=== PATIENT | male | born 1970 | race African-American/Black ===

== ENCOUNTER 2018-08-09 17:06 | Inpatient (IN) | payer OTHER ==
[~2018-08-09 17:06] MED LIST: AMIODARONE 150 MG INJ; ATROPINE 1 MG/10 ML SYRINGE; CA CHLORIDE 10% 10 ML SYRINGE; EPINEPHrine 0.1 MG/ML SYG; NA BICARBONATE 8.4% 50 ML SYG; NORepinephrine 8MG/250 ML BAG
[2018-08-09 17:31] LABS: ADD MAN DIFF? NO
[2018-08-09 17:33] LABS: WHITE BLOOD COUNT 7.5 10^3/ul (4.8-10.8)
[2018-08-09 17:33] LABS: ABNORMAL IP MESSAGE 1; BASOPHILS % 0.3 % (0.0-2.0); EOSINOPHILS % 0.1 % (0.0-7.0); HEMOGLOBIN 12.9 g/dl (14.0-18.0); LYMPHOCYTES # 2.8 10^3/ul (0.8-2.9); LYMPHOCYTES % 37.8 % (15.0-51.0); MEAN CORPUSCULAR HEMOGLOBIN 26.8 pg (29.0-33.0); MEAN CORPUSCULAR HGB CONC 29.3 g/dl (32.0-37.0); MEAN CORPUSCULAR VOLUME 91.3 fl (82.0-101.0); MEAN PLATELET VOLUME 10.2 fl (7.4-10.4); MONOCYTE # 0.3 10^3/ul (0.3-0.9); MONOCYTES % 3.5 % (0.0-11.0); NEUTROPHILS % 53.2 % (39.0-77.0); NUCLEATED RED BLOOD CELLS% 0.3 /100WBC (0.0-0.0); PLATELET COUNT 258 10^3/UL (140-415); POSITIVE DIFF @See below; RED BLOOD COUNT 4.82 10^6/ul (4.70-6.10); RED CELL DISTRIBUTION WIDTH 14.9 % (11.5-14.5)
[2018-08-09 17:48] LABS: INR 1.12; PROTIME 14.6 Sec (11.9-14.9); PT RATIO 1.1
[2018-08-09 17:49] LABS: PARTIAL THROMBOPLASTIN TIME 29.5 Sec (25.0-35.0)
[2018-08-09 17:51] LABS: ALANINE AMINOTRANSFERASE 81 IU/L (13-69); ALBUMIN 3.1 g/dl (3.3-4.9); ALBUMIN/GLOBULIN RATIO 0.93; ALKALINE PHOSPHATASE 98 IU/L (42-121); ANION GAP 23 (8-16); ASPARTATE AMINO TRANSFERASE 143 IU/L (15-46); BILIRUBIN,INDIRECT 0.1 mg/dl (0-1.1); BILIRUBIN,TOTAL 0.1 mg/dl (0.2-1.3); BLOOD UREA NITROGEN 18 mg/dl (7-20); CALCIUM 8.6 mg/dl (8.4-10.2); CARBON DIOXIDE 16 mmol/L (21-31); CHLORIDE 105 mmol/L (97-110); CREATININE 2.86 mg/dl (0.61-1.24); GLUCOSE 343 mg/dl (70-220); POTASSIUM 3.4 mmol/L (3.5-5.1); SODIUM 141 mmol/L (135-144); TOTAL PROTEIN 6.4 g/dl (6.1-8.1)
[2018-08-09 18:02] LABS: TROPONIN-I < 0.012 ng/ml (0.000-0.120)
[2018-08-09] MEDS ORDERED: LIDOCAINE 1% (MDV) 20 ML INJ (18:08)
[2018-08-09] MEDS ORDERED: IODIXANOL LOCM 100 ML BTL ×3 (18:08→18:42)
[2018-08-09] MEDS ORDERED: CANGRELOR TETRASODIUM/ NS 250 50 MG (18:09)
[2018-08-09 18:15] LABS: MAGNESIUM 2.2 mg/dl (1.7-2.5)
[2018-08-09 18:15] LABS: PHOSPHORUS 9.7 mg/dl (2.5-4.9)
[2018-08-09 18:15] LABS: LACTIC ACID 12.1 mmol/L (0.5-2.0)
[2018-08-09] MEDS ORDERED: MIDAZOLAM 1 MG/ML 2 ML INJ (18:20)
[2018-08-09] MEDS ORDERED: BIVALIRUDIN 250MG /NS 50 ML 50 ML IVPB (18:20)
[2018-08-09] MEDS ORDERED: FUROSEMIDE 40 MG INJ (18:48)
[2018-08-09 19:09] LABS: HEMOGLOBIN A1C 8.6 % (0-5.9)
[2018-08-09] MEDS ORDERED: LIDOCAINE 1%/EPI 30 ML INJ (19:29)
[2018-08-09] MEDS ORDERED: GLUCOSE GEL 15 GRAM TUBE PO ×2 (19:30)
[2018-08-09] MEDS: PROPOFOL 100 ML IV ×2 (19:30→23:17)
[2018-08-09] MEDS ORDERED: GLUCOSE GEL 15 GRAM TUBE BUCCAL (19:30)
[2018-08-09] MEDS ORDERED: GLUCAGON 1 MG INJ IM (19:30)
[2018-08-09] MEDS ORDERED: DEXTROSE 50% 50 ML SYRINGE IV ×2 (19:30)
[2018-08-09 20:44] LABS: AADO2 Arterial 598.5 mmHg (7.0-24.0); Arterial Base Excess -17.3 mmol/L (-3.0-3); Arterial Blood Gas Oxygen Sat 88.3 mmHG (95.0-98.0); Arterial COHb 0.3 % (0.0-3.0); Arterial Fraction of Oxyhgb 87.8 % (93.0-99.0); Arterial HCO3 11.9 mmol/L (22.0-26.0); Arterial MetHb 0.3 % (0.0-1.5); Arterial Total Hemglobin 14.7 g/dl (12.0-18.0); Arterial pCO2 40.1 mmhg (35-45); MODE VENT - AC; Site A-Line
[2018-08-09 20:46] LABS: AADO2 Arterial 587.2 mmHg (7.0-24.0); Allen Test ACCEPTAB; Arterial Base Excess -19.2 mmol/L (-3.0-3); Arterial Blood Gas Oxygen Sat 91.8 mmHG (95.0-98.0); Arterial COHb 0.1 % (0.0-3.0); Arterial Fraction of Oxyhgb 91.4 % (93.0-99.0); Arterial HCO3 10.6 mmol/L (22.0-26.0); Arterial MetHb 0.3 % (0.0-1.5); Arterial Total Hemglobin 15.1 g/dl (12.0-18.0); Arterial pCO2 39.1 mmhg (35-45); MODE VENT - AC; Site Left Radial
[2018-08-09] MEDS: NORepinephrine 8MG/250 ML (PMX 250 ML IV ×2 (20:50→21:30)
[2018-08-09] MEDS: AMIODARONE DRIP 1 MG/MIN X 6 HRS, THEN 0.5 MG/MIN X 18 HRS THEN DC IV (20:51)
[2018-08-09] MEDS ORDERED: Insulin NOVOLOG SS MILD Algorithm (NPO/TPN/ENTERAL FEEDS) SC (21:00)
[2018-08-09] MEDS ORDERED: INSULIN ASPART [NOVOLOG] 3 ML PEN SC (21:00)
[2018-08-09] MEDS: AMIODARONE 900MG/D5W DRIP 500 ML IV (21:00)
[2018-08-09] MEDS: SOD CHLORIDE 0.9% IV (21:20)
[2018-08-09] MEDS: FUROSEMIDE IV (21:20)
[2018-08-09] MEDS: [UNRECOGNIZED DRUG - OTHER] IVPB ×2 (21:37→23:14)
[2018-08-09] MEDS: SODIUM CHLORIDE IVPB ×2 (21:37→23:14)
[2018-08-09] MEDS: VECURONIUM 100 MG in DEXTROSE 5% 100 ML IV (21:41)
[2018-08-09] MEDS ORDERED: NA BICARBONATE 8.4% 50 ML SYG (21:46)
[2018-08-09] MEDS ORDERED: PROPOFOL 100 ML (21:58)
[2018-08-09] MEDS: NA BICARBONATE 8.4% 50 ML SYG IV (22:01)
[2018-08-09] MEDS: BUMETANIDE 1 MG INJ IV (22:01)
[2018-08-09] MEDS: SODIUM CHLORIDE 0.9% 1L BAG IV* (22:04)
[2018-08-09] MEDS: TICAGRELOR 90 MG TABLET PO (22:14)
[2018-08-09] MEDS: SODIUM CHLORIDE 0.9% 500 ML BAG IV* (23:15)
[2018-08-09] MEDS: SOD CHLORIDE 0.45% 1,000 ML IV (23:16)
[2018-08-09 23:28] LABS: AMYLASE 337 U/L (11-123)
[2018-08-09 23:28] LABS: LIPASE 129 U/L (23-300)
[2018-08-09 23:34] LABS: ADD UMIC YES; UR ASCORBIC ACID NEGATIVE (NEGATIVE); UR BACTERIA FEW /HPF (NONE SEEN); UR BILIRUBIN (Dip) NEGATIVE (NEGATIVE); UR BLOOD (Dip) 3+ mg/dL (NEGATIVE); UR CLARITY SLIGHTLY CLOUDY (CLEAR); UR COLOR YELLOW (YELLOW); UR GLUCOSE (Dip) 3+ mg/dL (NEGATIVE); UR KETONES (Dip) NEGATIVE (NEGATIVE); UR LEUKOCYTE ESTERASE (Dip) NEGATIVE Leu/ul (NEGATIVE); UR MUCUS FEW /HPF (NONE SEEN); UR NITRITE (Dip) NEGATIVE (NEGATIVE); UR RBC 40 /HPF (0-5); UR SPECIFIC GRAVITY (Dip) 1.017 (1.003-1.030); UR SQUAMOUS EPITHELIAL CELL FEW /HPF (FEW); UR TOTAL PROTEIN (Dip) 2+ mg/dl (NEGATIVE); UR UROBILINOGEN (Dip) NEGATIVE (NEGATIVE); UR WBC 5 /HPF (0-5)
[2018-08-09 23:43] LABS: LACTIC ACID 10.1 mmol/L (0.5-2.0)
[2018-08-09 23:56] LABS: CK INDEX 0.3; CREATINE KINASE 67790 IU/L (23-200)
[2018-08-10] MEDS: AMIODARONE DRIP 1 MG/MIN X 6 HRS, THEN 0.5 MG/MIN X 18 HRS THEN DC IV
[2018-08-10] MEDS: PROPOFOL 100 ML IV ×5 (01:04→21:31)
[2018-08-10 01:05] LABS: ADD MAN DIFF? NO
[2018-08-10 01:07] LABS: ABNORMAL IP MESSAGE 1; BASOPHILS % 0.2 % (0.0-2.0); HEMATOCRIT 47.4 % (42.0-52.0); HEMOGLOBIN 14.6 g/dl (14.0-18.0); LYMPHOCYTES # 1.3 10^3/ul (0.8-2.9); LYMPHOCYTES % 5.7 % (15.0-51.0); MEAN CORPUSCULAR HEMOGLOBIN 26.8 pg (29.0-33.0); MEAN CORPUSCULAR HGB CONC 30.8 g/dl (32.0-37.0); MEAN CORPUSCULAR VOLUME 87.1 fl (82.0-101.0); MEAN PLATELET VOLUME 9.8 fl (7.4-10.4); MONOCYTE # 1.7 10^3/ul (0.3-0.9); MONOCYTES % 7.7 % (0.0-11.0); NEUTROPHIL # 18.8 10^3/ul (1.6-7.5); PLATELET COUNT 369 10^3/UL (140-415); POSITIVE DIFF @See below; RED BLOOD COUNT 5.44 10^6/ul (4.70-6.10)
[2018-08-10 01:07] LABS: WHITE BLOOD COUNT 22.1 10^3/ul (4.8-10.8)
[2018-08-10 01:12] LABS: ALANINE AMINOTRANSFERASE 311 IU/L (13-69); ALBUMIN 3.2 g/dl (3.3-4.9); ALBUMIN/GLOBULIN RATIO 0.96; ALKALINE PHOSPHATASE 120 IU/L (42-121); ANION GAP 27 (8-16); ASPARTATE AMINO TRANSFERASE 739 IU/L (15-46); BILIRUBIN,INDIRECT 0.2 mg/dl (0-1.1); BILIRUBIN,TOTAL 0.2 mg/dl (0.2-1.3); BLOOD UREA NITROGEN 24 mg/dl (7-20); CALCIUM 7.3 mg/dl (8.4-10.2); CARBON DIOXIDE 13 mmol/L (21-31); CHLORIDE 103 mmol/L (97-110); MAGNESIUM 1.9 mg/dl (1.7-2.5); PHOSPHORUS 11.6 mg/dl (2.5-4.9); SODIUM 136 mmol/L (135-144); TOTAL PROTEIN 6.5 g/dl (6.1-8.1)
[2018-08-10 01:24] LABS: INR 1.11; PROTIME 14.5 Sec (11.9-14.9); PT RATIO 1.1
[2018-08-10 01:25] LABS: PARTIAL THROMBOPLASTIN TIME 32.3 Sec (25.0-35.0)
[2018-08-10 01:33] LABS: GLUCOSE 427 mg/dl (70-220); POTASSIUM 7.4 mmol/L (3.5-5.1)
[2018-08-10 01:34] LABS: AADO2 Arterial 637.2 mmHg (7.0-24.0); Arterial Blood Gas Oxygen Sat 89.7 mmHG (95.0-98.0); Arterial COHb 0.3 % (0.0-3.0); Arterial Fraction of Oxyhgb 89.3 % (93.0-99.0); Arterial MetHb 0.2 % (0.0-1.5); Arterial Total Hemglobin 16.4 g/dl (12.0-18.0); MODE VENT - AC; Site A-Line
[2018-08-10 01:37] LABS: CREATININE 2.82 mg/dl (0.61-1.24)
[2018-08-10] MEDS: CEFEPIME 2GM/50 ML (PMX) 50 ML IVPB (01:46)
[2018-08-10] MEDS: FENTAnyl (DRIP) 1000 mcg/100mL 100 ML IV (01:51)
[2018-08-10] MEDS: MIDAZOLAM (DRIP) 50 mg/50 mL 50 ML IV (01:51)
[2018-08-10] MEDS ORDERED: ACCU-CHEK XX (02:00)
[2018-08-10] MEDS ORDERED: DEXTROSE 50% 50 ML SYRINGE IV ×2 (02:00)
[2018-08-10] MEDS: ACCU-CHEK XX ×22 (02:44→22:59)
[2018-08-10] MEDS: VANCOMYCIN 1 GM (PMX) 250 ML IVPB (02:44)
[2018-08-10] MEDS: INSULIN HUMAN REGULAR 100 UNIT in SOD CHLORIDE 0.9% 99 ML IV ×3 (02:47→12:29)
[2018-08-10 03:37] LABS: ALANINE AMINOTRANSFERASE 488 IU/L (13-69); ALBUMIN 3.4 g/dl (3.3-4.9); ALBUMIN/GLOBULIN RATIO 1.06; ALKALINE PHOSPHATASE 124 IU/L (42-121); ANION GAP 23 (8-16); BILIRUBIN,INDIRECT 0.1 mg/dl (0-1.1); BILIRUBIN,TOTAL 0.1 mg/dl (0.2-1.3); BLOOD UREA NITROGEN 28 mg/dl (7-20); CALCIUM 6.9 mg/dl (8.4-10.2); CARBON DIOXIDE 16 mmol/L (21-31); CHLORIDE 105 mmol/L (97-110); SODIUM 137 mmol/L (135-144); TOTAL PROTEIN 6.6 g/dl (6.1-8.1)
[2018-08-10 04:00] LABS: ASPARTATE AMINO TRANSFERASE 1406 IU/L (15-46); CREATININE 2.74 mg/dl (0.61-1.24)
[2018-08-10 04:01] LABS: AADO2 Arterial 613.7 mmHg (7.0-24.0); Arterial Base Excess -10.9 mmol/L (-3.0-3); Arterial COHb 0.1 % (0.0-3.0); Arterial Fraction of Oxyhgb 95.6 % (93.0-99.0); Arterial HCO3 15.7 mmol/L (22.0-26.0); Arterial MetHb 0.3 % (0.0-1.5); Arterial Total Hemglobin 16.1 g/dl (12.0-18.0); Arterial pCO2 31.9 mmhg (35-45); MODE VENT - AC; Site A-Line
[2018-08-10 04:02] LABS: POTASSIUM 7.2 mmol/L (3.5-5.1)
[2018-08-10 04:03] LABS: GLUCOSE 492 mg/dl (70-220)
[2018-08-10] MEDS: NORepinephrine 8MG/250 ML (PMX 250 ML IV ×2 (05:15→12:30)
[2018-08-10] MEDS: CEFEPIME 1GM/50 ML (PMX) 50 ML IVPB ×2 (05:29→17:20)
[2018-08-10] MEDS: CALCIUM GLUCONATE 10% 2 GM in DEXTROSE 5% 100 ML IVPB ×2 (05:35→08:53)
[2018-08-10] MEDS: VECURONIUM 100 MG in DEXTROSE 5% 100 ML IV (06:12)
[2018-08-10 06:53] LABS: ADD MAN DIFF? NO
[2018-08-10 06:57] LABS: BASOPHILS % 0.2 % (0.0-2.0); HEMATOCRIT 45.2 % (42.0-52.0); HEMOGLOBIN 14.4 g/dl (14.0-18.0); LYMPHOCYTES # 1.2 10^3/ul (0.8-2.9); LYMPHOCYTES % 6.1 % (15.0-51.0); MEAN CORPUSCULAR HEMOGLOBIN 26.7 pg (29.0-33.0); MEAN CORPUSCULAR HGB CONC 31.9 g/dl (32.0-37.0); MEAN CORPUSCULAR VOLUME 83.9 fl (82.0-101.0); MEAN PLATELET VOLUME 9.8 fl (7.4-10.4); MONOCYTE # 1.1 10^3/ul (0.3-0.9); MONOCYTES % 5.8 % (0.0-11.0); NEUTROPHILS % 86.8 % (39.0-77.0); PLATELET COUNT 328 10^3/UL (140-415); RED BLOOD COUNT 5.39 10^6/ul (4.70-6.10)
[2018-08-10 06:57] LABS: WHITE BLOOD COUNT 19.6 10^3/ul (4.8-10.8)
[2018-08-10 07:25] LABS: INR 1.06; PROTIME 13.9 Sec (11.9-14.9); PT RATIO 1.1
[2018-08-10 07:26] LABS: PARTIAL THROMBOPLASTIN TIME 30.7 Sec (25.0-35.0)
[2018-08-10 07:42] LABS: ALANINE AMINOTRANSFERASE 565 IU/L (13-69); ALBUMIN/GLOBULIN RATIO 0.88; ALKALINE PHOSPHATASE 121 IU/L (42-121); ANION GAP 23 (8-16); BILIRUBIN,INDIRECT 0.2 mg/dl (0-1.1); BILIRUBIN,TOTAL 0.2 mg/dl (0.2-1.3); BLOOD UREA NITROGEN 30 mg/dl (7-20); CALCIUM 7.6 mg/dl (8.4-10.2); CARBON DIOXIDE 17 mmol/L (21-31); CHLORIDE 104 mmol/L (97-110); MAGNESIUM 2.1 mg/dl (1.7-2.5); SODIUM 138 mmol/L (135-144); TOTAL PROTEIN 6.4 g/dl (6.1-8.1)
[2018-08-10 07:45] LABS: CHOLESTEROL 208 mg/dl (100-200)
[2018-08-10 07:45] LABS: CHOL/HDL RATIO 6.9 RATIO; HDL CHOLESTEROL 30 mg/dl (28-71); LDL CHOLESTEROL,CALCULATED 115 mg/dl; TRIGLYCERIDES 314 mg/dl (0-149)
[2018-08-10 07:54] LABS: CREATININE 2.88 mg/dl (0.61-1.24)
[2018-08-10 07:56] LABS: POTASSIUM 5.6 mmol/L (3.5-5.1)
[2018-08-10 07:57] LABS: GLUCOSE 428 mg/dl (70-220)
[2018-08-10] MEDS: NA BICARBONATE 8.4% 50 ML SYG IV (08:10)
[2018-08-10 09:00] LABS: ASPARTATE AMINO TRANSFERASE 1618 IU/L (15-46)
[2018-08-10] MEDS: SOD CHLORIDE 0.45% 1,000 ML IV ×2 (09:18→21:31)
[2018-08-10 10:24] LABS: AADO2 Arterial 561.1 mmHg (7.0-24.0); Arterial Base Excess -7.3 mmol/L (-3.0-3); Arterial Blood Gas Oxygen Sat 98.5 mmHG (95.0-98.0); Arterial COHb 0.3 % (0.0-3.0); Arterial Fraction of Oxyhgb 97.9 % (93.0-99.0); Arterial HCO3 18.4 mmol/L (22.0-26.0); Arterial MetHb 0.3 % (0.0-1.5); Arterial Total Hemglobin 15.9 g/dl (12.0-18.0); Arterial pCO2 32.8 mmhg (35-45); MODE VENT - AC; Site A-Line; Temperature 33.5 C
[2018-08-10 10:42] LABS: CREATINE KINASE 108910 IU/L (23-200)
[2018-08-10] MEDS: BUMETANIDE 12 MG in DEXTROSE 5% 72 ML IV (10:43)
[2018-08-10 12:35] LABS: ADD MAN DIFF? NO
[2018-08-10 12:37] LABS: BASOPHILS % 0.1 % (0.0-2.0); HEMATOCRIT 48.8 % (42.0-52.0); HEMOGLOBIN 15.2 g/dl (14.0-18.0); LYMPHOCYTES # 0.8 10^3/ul (0.8-2.9); LYMPHOCYTES % 5.5 % (15.0-51.0); MEAN CORPUSCULAR HEMOGLOBIN 26.4 pg (29.0-33.0); MEAN CORPUSCULAR HGB CONC 31.1 g/dl (32.0-37.0); MEAN CORPUSCULAR VOLUME 84.7 fl (82.0-101.0); MEAN PLATELET VOLUME 9.4 fl (7.4-10.4); MONOCYTE # 0.9 10^3/ul (0.3-0.9); MONOCYTES % 6.9 % (0.0-11.0); NEUTROPHIL # 11.9 10^3/ul (1.6-7.5); NEUTROPHILS % 86.8 % (39.0-77.0); PLATELET COUNT 240 10^3/UL (140-415); RED BLOOD COUNT 5.76 10^6/ul (4.70-6.10); RED CELL DISTRIBUTION WIDTH 15.1 % (11.5-14.5)
[2018-08-10 12:37] LABS: WHITE BLOOD COUNT 13.7 10^3/ul (4.8-10.8)
[2018-08-10 12:57] LABS: INR 0.99; PROTIME 13.2 Sec (11.9-14.9)
[2018-08-10 12:58] LABS: PARTIAL THROMBOPLASTIN TIME 25.2 Sec (25.0-35.0)
[2018-08-10 13:05] LABS: ALANINE AMINOTRANSFERASE 712 IU/L (13-69); ALBUMIN 3.3 g/dl (3.3-4.9); ALBUMIN/GLOBULIN RATIO 0.94; ALKALINE PHOSPHATASE 129 IU/L (42-121); ANION GAP 19 (8-16); BILIRUBIN,INDIRECT 0.1 mg/dl (0-1.1); BILIRUBIN,TOTAL 0.1 mg/dl (0.2-1.3); BLOOD UREA NITROGEN 33 mg/dl (7-20); CALCIUM 8.2 mg/dl (8.4-10.2); CARBON DIOXIDE 22 mmol/L (21-31); CHLORIDE 103 mmol/L (97-110); GLUCOSE 251 mg/dl (70-220); MAGNESIUM 2.3 mg/dl (1.7-2.5); PHOSPHORUS 6.2 mg/dl (2.5-4.9); SODIUM 140 mmol/L (135-144); TOTAL PROTEIN 6.8 g/dl (6.1-8.1)
[2018-08-10 13:15] LABS: CREATININE 3.19 mg/dl (0.61-1.24)
[2018-08-10] MEDS: ASPIRIN 81 MG TAB NGT (13:26)
[2018-08-10] MEDS: TICAGRELOR 90 MG TABLET NGT ×2 (13:28→21:05)
[2018-08-10 14:00] LABS: AADO2 Arterial 396.9 mmHg (7.0-24.0); Arterial Base Excess -7.4 mmol/L (-3.0-3); Arterial Blood Gas Oxygen Sat 97.2 mmHG (95.0-98.0); Arterial COHb 0.3 % (0.0-3.0); Arterial Fraction of Oxyhgb 96.8 % (93.0-99.0); Arterial HCO3 17.1 mmol/L (22.0-26.0); Arterial MetHb 0.1 % (0.0-1.5); Arterial Total Hemglobin 15.5 g/dl (12.0-18.0); Arterial pCO2 26.7 mmhg (35-45); MODE VENT - AC; Site A-Line; Temperature 32.7 C
[2018-08-10 16:38] LABS: HEMOGLOBIN A1C 8.4 % (0-5.9)
[2018-08-10 17:17] LABS: CREATININE,URINE RANDOM 18.45 mg/dl (20-370); PROTEIN/CREAT RATIO 3.25 RATIO
[2018-08-10 17:49] LABS: SODIUM,URINE RANDOM 83 mmol/L (30-90)
[2018-08-10 18:09] LABS: AADO2 Arterial 336.3 mmHg (7.0-24.0); ADD MAN DIFF? NO; Allen Test ACCEPTAB; Arterial Base Excess -5.3 mmol/L (-3.0-3); Arterial Blood Gas Oxygen Sat 95.1 mmHG (95.0-98.0); Arterial COHb 0.1 % (0.0-3.0); Arterial Fraction of Oxyhgb 94.8 % (93.0-99.0); Arterial HCO3 19.6 mmol/L (22.0-26.0); Arterial MetHb 0.2 % (0.0-1.5); Arterial Total Hemglobin 16.8 g/dl (12.0-18.0); Arterial pCO2 31.2 mmhg (35-45); MODE VENT - AC; Site Left Radial; Temperature 33.1 C
[2018-08-10 18:11] LABS: WHITE BLOOD COUNT 14.1 10^3/ul (4.8-10.8)
[2018-08-10 18:11] LABS: BASOPHILS % 0.1 % (0.0-2.0); HEMATOCRIT 49.6 % (42.0-52.0); HEMOGLOBIN 15.6 g/dl (14.0-18.0); LYMPHOCYTES # 0.7 10^3/ul (0.8-2.9); MEAN CORPUSCULAR HEMOGLOBIN 26.5 pg (29.0-33.0); MEAN CORPUSCULAR HGB CONC 31.5 g/dl (32.0-37.0); MEAN CORPUSCULAR VOLUME 84.2 fl (82.0-101.0); MEAN PLATELET VOLUME 9.3 fl (7.4-10.4); MONOCYTE # 1.3 10^3/ul (0.3-0.9); MONOCYTES % 9.3 % (0.0-11.0); PLATELET COUNT 265 10^3/UL (140-415); RED BLOOD COUNT 5.89 10^6/ul (4.70-6.10); RED CELL DISTRIBUTION WIDTH 14.6 % (11.5-14.5)
[2018-08-10 18:30] LABS: INR 0.98; PROTIME 13.1 Sec (11.9-14.9)
[2018-08-10 18:31] LABS: PARTIAL THROMBOPLASTIN TIME 27.1 Sec (25.0-35.0)
[2018-08-10 18:34] LABS: ALANINE AMINOTRANSFERASE 784 IU/L (13-69); ALBUMIN 3.3 g/dl (3.3-4.9); ALBUMIN/GLOBULIN RATIO 0.86; ALKALINE PHOSPHATASE 129 IU/L (42-121); ANION GAP 20 (8-16); BILIRUBIN,INDIRECT 0.1 mg/dl (0-1.1); BILIRUBIN,TOTAL 0.1 mg/dl (0.2-1.3); BLOOD UREA NITROGEN 36 mg/dl (7-20); CALCIUM 7.9 mg/dl (8.4-10.2); CARBON DIOXIDE 22 mmol/L (21-31); CHLORIDE 104 mmol/L (97-110); CREATININE 3.68 mg/dl (0.61-1.24); GLUCOSE 145 mg/dl (70-220); MAGNESIUM 2.2 mg/dl (1.7-2.5); PHOSPHORUS 7.2 mg/dl (2.5-4.9); POTASSIUM 3.8 mmol/L (3.5-5.1); SODIUM 142 mmol/L (135-144); TOTAL PROTEIN 7.1 g/dl (6.1-8.1)
[2018-08-10 18:59] LABS: ASPARTATE AMINO TRANSFERASE 2137 IU/L (15-46)
[2018-08-10] MEDS ORDERED: ATORVASTATIN 40 MG TAB NGT (21:00)
[2018-08-10] MEDS: ATORVASTATIN 80 MG TAB NGT (21:04)
[2018-08-10 22:06] LABS: AADO2 Arterial 311.8 mmHg (7.0-24.0); Allen Test ACCEPTAB; Arterial Base Excess -3.9 mmol/L (-3.0-3); Arterial Blood Gas Oxygen Sat 97.9 mmHG (95.0-98.0); Arterial COHb 0.1 % (0.0-3.0); Arterial Fraction of Oxyhgb 97.5 % (93.0-99.0); Arterial HCO3 20.4 mmol/L (22.0-26.0); Arterial MetHb 0.3 % (0.0-1.5); Arterial Total Hemglobin 17.2 g/dl (12.0-18.0); Arterial pCO2 29.7 mmhg (35-45); MODE VENT - AC; Site Left Radial; Temperature 33.1 C
[2018-08-11 00:50] LABS: ADD MAN DIFF? NO
[2018-08-11 00:53] LABS: WHITE BLOOD COUNT 14.4 10^3/ul (4.8-10.8)
[2018-08-11 00:53] LABS: BASOPHILS % 0.1 % (0.0-2.0); HEMATOCRIT 48.8 % (42.0-52.0); HEMOGLOBIN 15.6 g/dl (14.0-18.0); LYMPHOCYTES # 0.7 10^3/ul (0.8-2.9); MEAN CORPUSCULAR HEMOGLOBIN 26.7 pg (29.0-33.0); MEAN CORPUSCULAR VOLUME 83.6 fl (82.0-101.0); MEAN PLATELET VOLUME 9.6 fl (7.4-10.4); MONOCYTE # 1.2 10^3/ul (0.3-0.9); MONOCYTES % 8.6 % (0.0-11.0); NEUTROPHIL # 12.3 10^3/ul (1.6-7.5); NEUTROPHILS % 85.7 % (39.0-77.0); PLATELET COUNT 263 10^3/UL (140-415); RED BLOOD COUNT 5.84 10^6/ul (4.70-6.10); RED CELL DISTRIBUTION WIDTH 14.7 % (11.5-14.5)
[2018-08-11] MEDS: SOD CHLORIDE 0.9% 1,000 ML IV (00:56)
[2018-08-11] MEDS: ACCU-CHEK XX ×24 (01:00→23:00)
[2018-08-11 01:12] LABS: INR 1.09; PROTIME 14.2 Sec (11.9-14.9); PT RATIO 1.1
[2018-08-11 01:13] LABS: PARTIAL THROMBOPLASTIN TIME 28.1 Sec (25.0-35.0)
[2018-08-11] MEDS: INSULIN HUMAN REGULAR 100 UNIT in SOD CHLORIDE 0.9% 99 ML IV ×3 (01:13→23:11)
[2018-08-11 01:15] LABS: ALANINE AMINOTRANSFERASE 834 IU/L (13-69); ALBUMIN 3.2 g/dl (3.3-4.9); ALBUMIN/GLOBULIN RATIO 0.86; ALKALINE PHOSPHATASE 124 IU/L (42-121); ANION GAP 19 (8-16); BILIRUBIN,INDIRECT 0.2 mg/dl (0-1.1); BILIRUBIN,TOTAL 0.2 mg/dl (0.2-1.3); BLOOD UREA NITROGEN 41 mg/dl (7-20); CALCIUM 7.8 mg/dl (8.4-10.2); CARBON DIOXIDE 23 mmol/L (21-31); CHLORIDE 101 mmol/L (97-110); GLUCOSE 145 mg/dl (70-220); MAGNESIUM 2.2 mg/dl (1.7-2.5); PHOSPHORUS 8.5 mg/dl (2.5-4.9); POTASSIUM 4.1 mmol/L (3.5-5.1); SODIUM 139 mmol/L (135-144); TOTAL PROTEIN 6.9 g/dl (6.1-8.1)
[2018-08-11 01:34] LABS: ASPARTATE AMINO TRANSFERASE 2182 IU/L (15-46)
[2018-08-11 03:59] LABS: AADO2 Arterial 309.5 mmHg (7.0-24.0); Allen Test ACCEPTAB; Arterial Base Excess -3.5 mmol/L (-3.0-3); Arterial Blood Gas Oxygen Sat 98.4 mmHG (95.0-98.0); Arterial COHb 0.2 % (0.0-3.0); Arterial HCO3 18.2 mmol/L (22.0-26.0); Arterial MetHb 0.2 % (0.0-1.5); Arterial Total Hemglobin 16.6 g/dl (12.0-18.0); Arterial pCO2 21.8 mmhg (35-45); MODE VENT - AC; Site Left Radial; Temperature 33.2 C
[2018-08-11] MEDS: CEFEPIME 1GM/50 ML (PMX) 50 ML IVPB ×2 (04:48→17:30)
[2018-08-11 05:41] LABS: ADD MAN DIFF? NO
[2018-08-11 05:43] LABS: WHITE BLOOD COUNT 14.8 10^3/ul (4.8-10.8)
[2018-08-11 05:43] LABS: BASOPHILS % 0.1 % (0.0-2.0); HEMATOCRIT 47.2 % (42.0-52.0); HEMOGLOBIN 15.2 g/dl (14.0-18.0); LYMPHOCYTES # 0.7 10^3/ul (0.8-2.9); LYMPHOCYTES % 4.6 % (15.0-51.0); MEAN CORPUSCULAR HEMOGLOBIN 26.8 pg (29.0-33.0); MEAN CORPUSCULAR HGB CONC 32.2 g/dl (32.0-37.0); MEAN CORPUSCULAR VOLUME 83.1 fl (82.0-101.0); MEAN PLATELET VOLUME 9.4 fl (7.4-10.4); MONOCYTE # 1.1 10^3/ul (0.3-0.9); MONOCYTES % 7.1 % (0.0-11.0); NEUTROPHILS % 87.6 % (39.0-77.0); PLATELET COUNT 268 10^3/UL (140-415); RED BLOOD COUNT 5.68 10^6/ul (4.70-6.10); RED CELL DISTRIBUTION WIDTH 14.8 % (11.5-14.5)
[2018-08-11 06:02] LABS: INR 1.09; PARTIAL THROMBOPLASTIN TIME 27.7 Sec (25.0-35.0); PROTIME 14.2 Sec (11.9-14.9); PT RATIO 1.1
[2018-08-11] MEDS: PROPOFOL 100 ML IV (06:20)
[2018-08-11 06:44] LABS: ALANINE AMINOTRANSFERASE 848 IU/L (13-69); ALBUMIN 2.7 g/dl (3.3-4.9); ALBUMIN/GLOBULIN RATIO 0.84; ALKALINE PHOSPHATASE 113 IU/L (42-121); ANION GAP 20 (8-16); BILIRUBIN,INDIRECT 0.2 mg/dl (0-1.1); BILIRUBIN,TOTAL 0.2 mg/dl (0.2-1.3); BLOOD UREA NITROGEN 42 mg/dl (7-20); CALCIUM 7.1 mg/dl (8.4-10.2); CARBON DIOXIDE 20 mmol/L (21-31); CHLORIDE 103 mmol/L (97-110); GLUCOSE 155 mg/dl (70-220); MAGNESIUM 1.9 mg/dl (1.7-2.5); PHOSPHORUS 8.2 mg/dl (2.5-4.9); POTASSIUM 4.4 mmol/L (3.5-5.1); SODIUM 139 mmol/L (135-144); TOTAL PROTEIN 5.9 g/dl (6.1-8.1)
[2018-08-11] MEDS: ASPIRIN 81 MG TAB NGT (08:53)
[2018-08-11] MEDS: TICAGRELOR 90 MG TABLET NGT ×2 (08:54→21:05)
[2018-08-11] MEDS ORDERED: FUROSEMIDE 40 MG INJ (12:03)
[2018-08-11 12:32] LABS: ADD MAN DIFF? NO
[2018-08-11 12:34] LABS: BASOPHILS % 0.2 % (0.0-2.0); HEMATOCRIT 46.4 % (42.0-52.0); HEMOGLOBIN 14.9 g/dl (14.0-18.0); LYMPHOCYTES # 0.7 10^3/ul (0.8-2.9); LYMPHOCYTES % 3.8 % (15.0-51.0); MEAN CORPUSCULAR HEMOGLOBIN 26.9 pg (29.0-33.0); MEAN CORPUSCULAR HGB CONC 32.1 g/dl (32.0-37.0); MEAN CORPUSCULAR VOLUME 83.8 fl (82.0-101.0); MEAN PLATELET VOLUME 9.8 fl (7.4-10.4); MONOCYTE # 1.3 10^3/ul (0.3-0.9); MONOCYTES % 7.4 % (0.0-11.0); NEUTROPHIL # 15.7 10^3/ul (1.6-7.5); NEUTROPHILS % 87.7 % (39.0-77.0); NUCLEATED RED BLOOD CELLS% 0.1 /100WBC (0.0-0.0); PLATELET COUNT 298 10^3/UL (140-415); RED BLOOD COUNT 5.54 10^6/ul (4.70-6.10); RED CELL DISTRIBUTION WIDTH 15.1 % (11.5-14.5)
[2018-08-11 12:34] LABS: WHITE BLOOD COUNT 17.9 10^3/ul (4.8-10.8)
[2018-08-11 12:56] LABS: INR 1.13; PROTIME 14.7 Sec (11.9-14.9); PT RATIO 1.1
[2018-08-11] MEDS: SOD CHLORIDE 0.45% 1,000 ML IV (13:01)
[2018-08-11 13:12] LABS: ALANINE AMINOTRANSFERASE 794 IU/L (13-69); ALBUMIN 3.2 g/dl (3.3-4.9); ALBUMIN/GLOBULIN RATIO 0.88; ALKALINE PHOSPHATASE 113 IU/L (42-121); ANION GAP 19 (8-16); BILIRUBIN,INDIRECT 0.2 mg/dl (0-1.1); BILIRUBIN,TOTAL 0.2 mg/dl (0.2-1.3); BLOOD UREA NITROGEN 46 mg/dl (7-20); CALCIUM 6.8 mg/dl (8.4-10.2); CARBON DIOXIDE 23 mmol/L (21-31); CHLORIDE 102 mmol/L (97-110); CREATININE 5.09 mg/dl (0.61-1.24); GLUCOSE 182 mg/dl (70-220); MAGNESIUM 1.9 mg/dl (1.7-2.5); PHOSPHORUS 9.7 mg/dl (2.5-4.9); POTASSIUM 4.8 mmol/L (3.5-5.1); SODIUM 139 mmol/L (135-144); TOTAL PROTEIN 6.8 g/dl (6.1-8.1)
[2018-08-11] MEDS: FUROSEMIDE 40 MG INJ IV (13:18)
[2018-08-11 13:40] LABS: ASPARTATE AMINO TRANSFERASE 1823 IU/L (15-46)
[2018-08-11] MEDS ORDERED: ALBUMIN HUMAN 25% 100 ML (13:58)
[2018-08-11] MEDS: ALBUMIN HUMAN 25% 100 ML IV (14:08)
[2018-08-11] MEDS: SOD CHLORIDE 0.9% 250 ML IV (14:24)
[2018-08-11] MEDS: CALCIUM GLUCONATE 10% 1 GM in DEXTROSE 5% 100 ML IVPB (15:40)
[2018-08-11] MEDS ORDERED: HEPARIN 1000 UNITS/ML 10 ML INJ IV (17:00)
[2018-08-11] MEDS ORDERED: DOPamine-D5W 1.6 MG/ML 250 ML ×2 (17:12→21:14)
[2018-08-11 17:25] LABS: WHITE BLOOD COUNT 13.3 10^3/ul (4.8-10.8)
[2018-08-11 17:25] LABS: HEMATOCRIT 35.5 % (42.0-52.0); HEMOGLOBIN 10.7 g/dl (14.0-18.0); MEAN CORPUSCULAR HEMOGLOBIN 26.8 pg (29.0-33.0); MEAN CORPUSCULAR HGB CONC 30.1 g/dl (32.0-37.0); MEAN CORPUSCULAR VOLUME 88.8 fl (82.0-101.0); MEAN PLATELET VOLUME 10.1 fl (7.4-10.4); NUCLEATED RED BLOOD CELLS% 0.5 /100WBC (0.0-0.0); PLATELET COUNT 249 10^3/UL (140-415); POSITIVE DIFF @See below; RED CELL DISTRIBUTION WIDTH 15.3 % (11.5-14.5)
[2018-08-11] MEDS: BUMETANIDE 1 MG INJ IV (17:30)
[2018-08-11 17:35] LABS: ADD MAN DIFF? YES
[2018-08-11 17:44] LABS: AADO2 Arterial 573.3 mmHg (7.0-24.0); Arterial Base Excess -15.5 mmol/L (-3.0-3); Arterial Blood Gas Oxygen Sat 90.6 mmHG (95.0-98.0); Arterial COHb 0.3 % (0.0-3.0); Arterial Fraction of Oxyhgb 90.1 % (93.0-99.0); Arterial HCO3 15.1 mmol/L (22.0-26.0); Arterial MetHb 0.2 % (0.0-1.5); Arterial Total Hemglobin 12.6 g/dl (12.0-18.0); Arterial pCO2 55.7 mmhg (35-45); MODE VENT - AC; Site A-Line; Temperature 36.7 C
[2018-08-11 17:46] LABS: INR 1.41; PROTIME 17.5 Sec (11.9-14.9); PT RATIO 1.4
[2018-08-11 17:47] LABS: PARTIAL THROMBOPLASTIN TIME 31.3 Sec (25.0-35.0)
[2018-08-11] MEDS: PHENYLephrine 40 MG in DEXTROSE 5% 496 ML IV (17:55)
[2018-08-11 18:06] LABS: BAND NEUTROPHILS #M 1.7 10^3/ul (0.0-0.6); BAND NEUTROPHILS % (M) 13 % (0-4); BURR CELLS 3+ (0-0); GIANT THROMBO% (M) 1 % (0-0); LYMPHOCYTES #M 0.3 10^3/ul (0.8-2.9); LYMPHOCYTES % (M) 3 % (15-51); MONOCYTE #M 0.9 10^3/ul (0.3-0.9); MONOCYTES % (M) 7 % (0-11); MYELOCYTES #M 0.3 10^3/ul (0.0-0.0); MYELOCYTES % (M) 3 % (0-0); PLATELET ESTIMATE NORMAL; POIKILOCYTOSIS 3+ (0-0); POLYCHROMASIA 1+ (0-0); SEG NEUT #M 10.1 10^3/ul (1.6-7.5); SEGMENTED NEUTROPHILS (M) % 74 % (39-77)
[2018-08-11] MEDS ORDERED: NA BICARBONATE 8.4% 50 ML SYG ×2 (18:06)
[2018-08-11] MEDS: NA BICARBONATE 8.4% 50 ML SYG IV (18:31)
[2018-08-11] MEDS: HEPARIN 1000 UNITS/ML 10 ML INJ IV (18:42)
[2018-08-11] MEDS: HEPARIN 25000 UNITS/250 ML 250 ML IV (18:44)
[2018-08-11 19:29] LABS: AADO2 Arterial 601.5 mmHg (7.0-24.0); Arterial Base Excess -5.8 mmol/L (-3.0-3); Arterial Blood Gas Oxygen Sat 90.1 mmHG (95.0-98.0); Arterial COHb 0.3 % (0.0-3.0); Arterial Fraction of Oxyhgb 89.6 % (93.0-99.0); Arterial HCO3 20.8 mmol/L (22.0-26.0); Arterial MetHb 0.3 % (0.0-1.5); Arterial Total Hemglobin 14.1 g/dl (12.0-18.0); Arterial pCO2 44.8 mmhg (35-45); MODE VENT - AC; Site A-Line
[2018-08-11] MEDS: PHENYLephrine 160 MG in DEXTROSE 5% 484 ML IV (20:25)
[2018-08-11 20:26] LABS: ANION GAP 27 (8-16); BLOOD UREA NITROGEN 47 mg/dl (7-20); CALCIUM 6.5 mg/dl (8.4-10.2); CARBON DIOXIDE 12 mmol/L (21-31); CHLORIDE 103 mmol/L (97-110); GLUCOSE 318 mg/dl (70-220); SODIUM 135 mmol/L (135-144)
[2018-08-11 20:34] LABS: CREATININE 5.27 mg/dl (0.61-1.24); POTASSIUM 6.6 mmol/L (3.5-5.1)
[2018-08-11] MEDS: SODIUM BICARBONATE (IV ADD) 100 MEQ in DEXTROSE 5% 1,000 ML IV (20:36)
[2018-08-11] MEDS: ATORVASTATIN 80 MG TAB NGT (21:04)
[2018-08-11] MEDS: NA POLYST SULFON 15 GM/60 ML BTL PO (21:47)
[2018-08-11] MEDS: DOPamine-D5W 1.6 MG/ML 250 ML IV (22:32)
[2018-08-12 00:04] LABS: POTASSIUM 3.9 mmol/L (3.5-5.1)
[2018-08-12] MEDS: CALCIUM GLUCONATE 10% 1 GM in DEXTROSE 5% 100 ML IVPB (00:23)
[2018-08-12] MEDS: NORepinephrine 32 MG in DEXTROSE 5% 218 ML IV ×2 (00:40→16:36)
[2018-08-12] MEDS: ACCU-CHEK XX ×24 (01:00→23:00)
[2018-08-12 01:01] LABS: INR 1.29; PROTIME 16.3 Sec (11.9-14.9); PT RATIO 1.3
[2018-08-12 01:04] LABS: PARTIAL THROMBOPLASTIN TIME 61.8 Sec (25.0-35.0)
[2018-08-12] MEDS: BUMETANIDE 1 MG INJ IV ×2 (05:28→17:29)
[2018-08-12] MEDS: SODIUM BICARBONATE (IV ADD) 100 MEQ in DEXTROSE 5% 1,000 ML IV ×2 (05:28→19:55)
[2018-08-12] MEDS: PHENYLephrine 160 MG in DEXTROSE 5% 484 ML IV ×2 (05:36→14:08)
[2018-08-12 05:47] LABS: ADD MAN DIFF? NO
[2018-08-12 05:52] LABS: BASOPHILS % 0.1 % (0.0-2.0); EOSINOPHILS % 0.1 % (0.0-7.0); HEMATOCRIT 37.4 % (42.0-52.0); LYMPHOCYTES # 1.5 10^3/ul (0.8-2.9); LYMPHOCYTES % 9.9 % (15.0-51.0); MEAN CORPUSCULAR HEMOGLOBIN 26.8 pg (29.0-33.0); MEAN CORPUSCULAR HGB CONC 32.1 g/dl (32.0-37.0); MEAN CORPUSCULAR VOLUME 83.5 fl (82.0-101.0); MEAN PLATELET VOLUME 10.6 fl (7.4-10.4); MONOCYTES % 7.1 % (0.0-11.0); NEUTROPHIL # 11.8 10^3/ul (1.6-7.5); NEUTROPHILS % 80.3 % (39.0-77.0); NUCLEATED RED BLOOD CELLS # 0.1 10^3/ul (0.0-0.0); PLATELET COUNT 269 10^3/UL (140-415); POSITIVE DIFF @See below; RED BLOOD COUNT 4.48 10^6/ul (4.70-6.10); RED CELL DISTRIBUTION WIDTH 15.2 % (11.5-14.5)
[2018-08-12 05:52] LABS: WHITE BLOOD COUNT 14.7 10^3/ul (4.8-10.8)
[2018-08-12 06:12] LABS: PARTIAL THROMBOPLASTIN TIME 64.2 Sec (25.0-35.0)
[2018-08-12 06:28] LABS: ANION GAP 18 (8-16); BLOOD UREA NITROGEN 63 mg/dl (7-20); CARBON DIOXIDE 23 mmol/L (21-31); CHLORIDE 101 mmol/L (97-110); CREATININE 7.04 mg/dl (0.61-1.24); GLUCOSE 203 mg/dl (70-220); PHOSPHORUS 10.2 mg/dl (2.5-4.9); POTASSIUM 4.1 mmol/L (3.5-5.1); SODIUM 138 mmol/L (135-144)
[2018-08-12 06:42] LABS: CALCIUM 5.6 mg/dl (8.4-10.2)
[2018-08-12 08:06] LABS: AADO2 Arterial 567.5 mmHg (7.0-24.0); Arterial Base Excess -3.5 mmol/L (-3.0-3); Arterial Blood Gas Oxygen Sat 96.4 mmHG (95.0-98.0); Arterial COHb 0.1 % (0.0-3.0); Arterial Fraction of Oxyhgb 95.9 % (93.0-99.0); Arterial HCO3 23.1 mmol/L (22.0-26.0); Arterial MetHb 0.4 % (0.0-1.5); Arterial pCO2 47.6 mmhg (35-45); MODE VENT - AC; Site A-Line
[2018-08-12] MEDS: CALCIUM GLUCONATE 10% 2 GM in DEXTROSE 5% 100 ML IVPB ×2 (08:27→18:09)
[2018-08-12] MEDS: ASPIRIN 81 MG TAB NGT (09:17)
[2018-08-12] MEDS: AMIODARONE 900 MG in DEXTROSE 5% 482 ML IV (09:17)
[2018-08-12] MEDS: TICAGRELOR 90 MG TABLET NGT ×2 (09:18→20:49)
[2018-08-12 09:24] LABS: ANISOCYTOSIS 1+ (0-0); BAND NEUTROPHILS #M 2.2 10^3/ul (0.0-0.6); BAND NEUTROPHILS % (M) 15 % (0-4); BURR CELLS 1+ (0-0); ERYTHROBLAST% (NRBC) (M) 2 % (0-0); LYMPHOCYTES #M 2.6 10^3/ul (0.8-2.9); LYMPHOCYTES % (M) 18 % (15-51); MICROCYTOSIS 1+ (0-0); MONOCYTE #M 0.2 10^3/ul (0.3-0.9); MONOCYTES % (M) 2 % (0-11); MYELOCYTES #M 0.1 10^3/ul (0.0-0.0); MYELOCYTES % (M) 1 % (0-0); PLATELET ESTIMATE NORMAL; PLATELET MORPHOLOGY COMMENT @See below; POIKILOCYTOSIS 1+ (0-0); POLYCHROMASIA 2+ (0-0); REACTIVE LYMPHOCYTES #M 0.4 10^3/ul (0.0-0.0); REACTIVE LYMPHOCYTES% (M) 3 % (0-0); SEG NEUT #M 9.3 10^3/ul (1.6-7.5); SEGMENTED NEUTROPHILS (M) % 61 % (39-77)
[2018-08-12 09:40] LABS: AADO2 Arterial 312.5 mmHg (7.0-24.0); Allen Test ACCEPTAB; Arterial Base Excess -5.3 mmol/L (-3.0-3); Arterial Blood Gas Oxygen Sat 96.5 mmHG (95.0-98.0); Arterial COHb 0.2 % (0.0-3.0); Arterial Fraction of Oxyhgb 95.9 % (93.0-99.0); Arterial HCO3 19.2 mmol/L (22.0-26.0); Arterial MetHb 0.4 % (0.0-1.5); Arterial Total Hemglobin 16.5 g/dl (12.0-18.0); Arterial pCO2 32.4 mmhg (35-45); MODE VENT - AC; Site Left Radial; Temperature 35.3 C
[2018-08-12] MEDS: HEPARIN 1000 UNITS/ML 10 ML INJ CATHETER (10:51)
[2018-08-12] MEDS: PROPOFOL 100 ML IV ×2 (11:00→23:00)
[2018-08-12] MEDS: INSULIN HUMAN REGULAR 100 UNIT in SOD CHLORIDE 0.9% 99 ML IV ×2 (11:08→22:14)
[2018-08-12 11:41] LABS: AMMONIA < 9 umol/l (9-30)
[2018-08-12] MEDS: DOPamine-D5W 1.6 MG/ML 250 ML IV (14:14)
[2018-08-12 15:10] LABS: AADO2 Arterial 457.2 mmHg (7.0-24.0); Arterial Base Excess -3.5 mmol/L (-3.0-3); Arterial Blood Gas Oxygen Sat 98.6 mmHG (95.0-98.0); Arterial COHb 0.3 % (0.0-3.0); Arterial Fraction of Oxyhgb 97.9 % (93.0-99.0); Arterial HCO3 21.6 mmol/L (22.0-26.0); Arterial MetHb 0.4 % (0.0-1.5); Arterial Total Hemglobin 12.3 g/dl (12.0-18.0); MODE VENT - AC; Site A-Line
[2018-08-12 15:44] LABS: ALANINE AMINOTRANSFERASE 522 IU/L (13-69); ALBUMIN 2.8 g/dl (3.3-4.9); ALBUMIN/GLOBULIN RATIO 1.03; ALKALINE PHOSPHATASE 75 IU/L (42-121); ANION GAP 18 (8-16); BILIRUBIN,INDIRECT 0.1 mg/dl (0-1.1); BILIRUBIN,TOTAL 0.1 mg/dl (0.2-1.3); BLOOD UREA NITROGEN 69 mg/dl (7-20); CARBON DIOXIDE 23 mmol/L (21-31); CHLORIDE 98 mmol/L (97-110); CREATININE 7.54 mg/dl (0.61-1.24); GLUCOSE 199 mg/dl (70-220); POTASSIUM 4.2 mmol/L (3.5-5.1); SODIUM 135 mmol/L (135-144); TOTAL PROTEIN 5.5 g/dl (6.1-8.1)
[2018-08-12 15:54] LABS: ASPARTATE AMINO TRANSFERASE 1258 IU/L (15-46)
[2018-08-12 15:55] LABS: CALCIUM 5.4 mg/dl (8.4-10.2)
[2018-08-12] MEDS ORDERED: SODIUM CHLORIDE 0.9% 1L BAG IV (17:00)
[2018-08-12] MEDS: CEFEPIME 1GM/50 ML (PMX) 50 ML IVPB (17:29)
[2018-08-12] MEDS: PANTOPRAZOLE 40 MG INJ IV (17:29)
[2018-08-12] MEDS: ACETAMINOPHEN 650MG/20.3ML CUP NGT ×2 (17:30→21:33)
[2018-08-12] MEDS ORDERED: INSULIN ASPART [NOVOLOG] 3 ML PEN SC (17:35)
[2018-08-12 17:50] LABS: ADD UMIC YES; UR ASCORBIC ACID NEGATIVE (NEGATIVE); UR BACTERIA FEW /HPF (NONE SEEN); UR BILIRUBIN (Dip) NEGATIVE (NEGATIVE); UR BLOOD (Dip) 3+ mg/dL (NEGATIVE); UR CLARITY SLIGHTLY CLOUDY (CLEAR); UR COLOR AMBER (YELLOW); UR GLUCOSE (Dip) 1+ mg/dL (NEGATIVE); UR KETONES (Dip) NEGATIVE (NEGATIVE); UR LEUKOCYTE ESTERASE (Dip) TRACE Leu/ul (NEGATIVE); UR NITRITE (Dip) NEGATIVE (NEGATIVE); UR RBC 64 /HPF (0-5); UR SPECIFIC GRAVITY (Dip) 1.036 (1.003-1.030); UR TOTAL PROTEIN (Dip) 2+ mg/dl (NEGATIVE); UR UROBILINOGEN (Dip) NEGATIVE (NEGATIVE); UR WBC 20 /HPF (0-5)
[2018-08-12 18:31] LABS: HEPATITIS B SURFACE ANTIGEN NEGATIVE (NEGATIVE)
[2018-08-12] MEDS ORDERED: INSULIN GLARGINE [LANTus] (100 UNITS/ML) SYG SC (20:00)
[2018-08-12 20:26] LABS: AADO2 Arterial 418.4 mmHg (7.0-24.0); Arterial Blood Gas Oxygen Sat 97.2 mmHG (95.0-98.0); Arterial COHb 0.3 % (0.0-3.0); Arterial Fraction of Oxyhgb 96.5 % (93.0-99.0); Arterial HCO3 22.9 mmol/L (22.0-26.0); Arterial MetHb 0.4 % (0.0-1.5); Arterial Total Hemglobin 12.3 g/dl (12.0-18.0); Arterial pCO2 44.2 mmhg (35-45); MODE VENT - AC; Site A-Line
[2018-08-12] MEDS: NA BICARBONATE 8.4% 50 ML SYG IV (20:30)
[2018-08-12] MEDS: ATORVASTATIN 80 MG TAB NGT (20:48)
[2018-08-12] MEDS: INSULIN GLARGINE [LANTus] (100 UNITS/ML) SYG SC (21:21)
[2018-08-12 22:44] LABS: ANION GAP 18 (8-16); BLOOD UREA NITROGEN 72 mg/dl (7-20); CARBON DIOXIDE 24 mmol/L (21-31); CHLORIDE 93 mmol/L (97-110); CREATININE 8.05 mg/dl (0.61-1.24); GLUCOSE 243 mg/dl (70-220); SODIUM 130 mmol/L (135-144)
[2018-08-12 22:48] LABS: CALCIUM 5.5 mg/dl (8.4-10.2)
[2018-08-13] MEDS: CALCIUM GLUCONATE 10% 2 GM in DEXTROSE 5% 100 ML IVPB ×3 (00:04→22:30)
[2018-08-13] MEDS: INSULIN HUMAN REGULAR 100 UNIT in SOD CHLORIDE 0.9% 99 ML IV ×4 (00:19→19:53)
[2018-08-13] MEDS: PHENYLephrine 160 MG in SOD CHLORIDE 0.9% 484 ML IV ×2 (00:24→08:20)
[2018-08-13] MEDS: ACCU-CHEK XX ×24 (01:00→23:00)
[2018-08-13] MEDS: HEPARIN 1000 UNITS/ML 10 ML INJ CATHETER (04:46)
[2018-08-13 05:52] LABS: HEMOGLOBIN 10.3 g/dl (14.0-18.0); MEAN CORPUSCULAR HEMOGLOBIN 26.9 pg (29.0-33.0); MEAN CORPUSCULAR HGB CONC 32.2 g/dl (32.0-37.0); MEAN CORPUSCULAR VOLUME 83.6 fl (82.0-101.0); MEAN PLATELET VOLUME 10.1 fl (7.4-10.4); NUCLEATED RED BLOOD CELLS% 0.3 /100WBC (0.0-0.0); PLATELET COUNT 196 10^3/UL (140-415); POSITIVE DIFF @See below; RED BLOOD COUNT 3.83 10^6/ul (4.70-6.10); RED CELL DISTRIBUTION WIDTH 15.4 % (11.5-14.5)
[2018-08-13 05:52] LABS: WHITE BLOOD COUNT 14.4 10^3/ul (4.8-10.8)
[2018-08-13] MEDS ORDERED: PENDING SANTYL ORDER FOR WOUND CARE XX (06:00)
[2018-08-13 06:03] LABS: ADD MAN DIFF? YES
[2018-08-13] MEDS: BUMETANIDE 1 MG INJ IV ×2 (06:11→17:13)
[2018-08-13] MEDS: PANTOPRAZOLE 40 MG INJ IV ×2 (06:11→17:15)
[2018-08-13] MEDS: ACETAMINOPHEN 650MG/20.3ML CUP NGT ×3 (06:13→21:17)
[2018-08-13 06:19] LABS: ALANINE AMINOTRANSFERASE 481 IU/L (13-69); ALBUMIN 2.7 g/dl (3.3-4.9); ALBUMIN/GLOBULIN RATIO 0.93; ALKALINE PHOSPHATASE 101 IU/L (42-121); ANION GAP 17 (8-16); BILIRUBIN,INDIRECT 0.2 mg/dl (0-1.1); BILIRUBIN,TOTAL 0.2 mg/dl (0.2-1.3); BLOOD UREA NITROGEN 59 mg/dl (7-20); CALCIUM 6.1 mg/dl (8.4-10.2); CARBON DIOXIDE 27 mmol/L (21-31); CHLORIDE 92 mmol/L (97-110); CREATININE 7.24 mg/dl (0.61-1.24); GLUCOSE 213 mg/dl (70-220); MAGNESIUM 1.8 mg/dl (1.7-2.5); POTASSIUM 4.2 mmol/L (3.5-5.1); SODIUM 132 mmol/L (135-144); TOTAL PROTEIN 5.6 g/dl (6.1-8.1)
[2018-08-13] MEDS ORDERED: VANCOMYCIN IV PER PHARMACY XX (06:30)
[2018-08-13 06:32] LABS: ASPARTATE AMINO TRANSFERASE 1256 IU/L (15-46)
[2018-08-13] MEDS: NORepinephrine 32 MG in DEXTROSE 5% 218 ML IV ×2 (06:35→22:54)
[2018-08-13 07:32] LABS: ANISOCYTOSIS 1+ (0-0); BAND NEUTROPHILS #M 2.1 10^3/ul (0.0-0.6); BAND NEUTROPHILS % (M) 15 % (0-4); BASOPHIL #M 0.1 10^3/ul (0.0-0.0); BASOPHILS % (M) 1 % (0-2); EOSINOPHILS % (M) 3 % (0-7); ERYTHROBLAST% (NRBC) (M) 3 % (0-0); LYMPHOCYTES #M 1.5 10^3/ul (0.8-2.9); LYMPHOCYTES % (M) 11 % (15-51); MICROCYTOSIS 1+ (0-0); MONOCYTE #M 0.7 10^3/ul (0.3-0.9); MONOCYTES % (M) 5 % (0-11); PLATELET ESTIMATE NORMAL; POLYCHROMASIA 1+ (0-0); REACTIVE LYMPHOCYTES #M 0.4 10^3/ul (0.0-0.0); REACTIVE LYMPHOCYTES% (M) 3 % (0-0); SEG NEUT #M 9.2 10^3/ul (1.6-7.5); SEGMENTED NEUTROPHILS (M) % 62 % (39-77); SMUDGE%M 2 % (0-0)
[2018-08-13] MEDS: VANCOMYCIN 2 GM in SOD CHLORIDE 0.9% 500 ML IVPB (08:04)
[2018-08-13] MEDS: ASPIRIN 81 MG TAB NGT (08:12)
[2018-08-13] MEDS: TICAGRELOR 90 MG TABLET NGT ×2 (08:19→21:18)
[2018-08-13] MEDS: PROPOFOL 100 ML IV ×2 (11:00→23:00)
[2018-08-13] MEDS: SODIUM BICARBONATE (IV ADD) 100 MEQ in DEXTROSE 5% 1,000 ML IV (12:32)
[2018-08-13] MEDS: AMIODARONE 900 MG in DEXTROSE 5% 482 ML IV (14:56)
[2018-08-13] MEDS: CEFEPIME 1GM/50 ML (PMX) 50 ML IVPB (17:15)
[2018-08-13] MEDS: INSULIN GLARGINE [LANTus] (100 UNITS/ML) SYG SC (20:17)
[2018-08-13] MEDS: ATORVASTATIN 80 MG TAB NGT (21:17)
[2018-08-13 21:32] LABS: ANION GAP 17 (8-16); BLOOD UREA NITROGEN 67 mg/dl (7-20); CARBON DIOXIDE 26 mmol/L (21-31); CHLORIDE 90 mmol/L (97-110); CREATININE 8.97 mg/dl (0.61-1.24); GLUCOSE 249 mg/dl (70-220); POTASSIUM 4.3 mmol/L (3.5-5.1); SODIUM 129 mmol/L (135-144)
[2018-08-13 21:33] LABS: CALCIUM 5.7 mg/dl (8.4-10.2)
[2018-08-14] MEDS: ACCU-CHEK XX ×24 (01:00→23:07)
[2018-08-14] MEDS: PHENYLephrine 160 MG in SOD CHLORIDE 0.9% 484 ML IV (01:25)
[2018-08-14] MEDS: INSULIN HUMAN REGULAR 100 UNIT in SOD CHLORIDE 0.9% 99 ML IV ×3 (02:18→22:18)
[2018-08-14] MEDS: SODIUM BICARBONATE (IV ADD) 100 MEQ in DEXTROSE 5% 1,000 ML IV ×3 (03:56→22:35)
[2018-08-14] MEDS: ALBUMIN HUMAN 25% 100 ML IV (05:18)
[2018-08-14 05:37] LABS: ADD MAN DIFF? NO
[2018-08-14 05:46] LABS: WHITE BLOOD COUNT 15.9 10^3/ul (4.8-10.8)
[2018-08-14 05:46] LABS: BASOPHILS % 0.3 % (0.0-2.0); EOSINOPHILS # 0.1 10^3/ul (0.0-0.5); EOSINOPHILS % 0.8 % (0.0-7.0); HEMATOCRIT 30.3 % (42.0-52.0); HEMOGLOBIN 9.5 g/dl (14.0-18.0); LYMPHOCYTES # 0.9 10^3/ul (0.8-2.9); LYMPHOCYTES % 5.5 % (15.0-51.0); MEAN CORPUSCULAR HEMOGLOBIN 26.4 pg (29.0-33.0); MEAN CORPUSCULAR HGB CONC 31.4 g/dl (32.0-37.0); MEAN CORPUSCULAR VOLUME 84.2 fl (82.0-101.0); MEAN PLATELET VOLUME 9.8 fl (7.4-10.4); MONOCYTE # 1.4 10^3/ul (0.3-0.9); MONOCYTES % 8.7 % (0.0-11.0); NEUTROPHIL # 13.3 10^3/ul (1.6-7.5); NEUTROPHILS % 83.2 % (39.0-77.0); NUCLEATED RED BLOOD CELLS% 0.2 /100WBC (0.0-0.0); PLATELET COUNT 189 10^3/UL (140-415); POSITIVE DIFF @See below; RED CELL DISTRIBUTION WIDTH 15.3 % (11.5-14.5)
[2018-08-14] MEDS: PANTOPRAZOLE 40 MG INJ IV ×2 (05:57→18:40)
[2018-08-14] MEDS: BUMETANIDE 1 MG INJ IV ×2 (05:57→18:41)
[2018-08-14 06:08] LABS: MAGNESIUM 1.8 mg/dl (1.7-2.5)
[2018-08-14 06:16] LABS: PHOSPHORUS 6.2 mg/dl (2.5-4.9)
[2018-08-14 06:21] LABS: ANION GAP 16 (8-16); BLOOD UREA NITROGEN 42 mg/dl (7-20); CALCIUM 7.8 mg/dl (8.4-10.2); CARBON DIOXIDE 29 mmol/L (21-31); CHLORIDE 96 mmol/L (97-110); GLUCOSE 166 mg/dl (70-220); SODIUM 137 mmol/L (135-144)
[2018-08-14] MEDS: ASPIRIN 81 MG TAB NGT (08:11)
[2018-08-14] MEDS: TICAGRELOR 90 MG TABLET NGT ×2 (08:12→20:48)
[2018-08-14] MEDS: PROPOFOL 100 ML IV ×2 (10:47→23:00)
[2018-08-14] MEDS: NORepinephrine 32 MG in DEXTROSE 5% 218 ML IV (14:04)
[2018-08-14] MEDS: CEFEPIME 1GM/50 ML (PMX) 50 ML IVPB (18:41)
[2018-08-14] MEDS: AMIODARONE 900 MG in DEXTROSE 5% 482 ML IV (19:57)
[2018-08-14] MEDS: ATORVASTATIN 80 MG TAB NGT (20:48)
[2018-08-14] MEDS: INSULIN GLARGINE [LANTus] (100 UNITS/ML) SYG SC (20:49)
[2018-08-15] MEDS: ACCU-CHEK XX ×19 (00:07→18:08)
[2018-08-15] MEDS: PHENYLephrine 160 MG in SOD CHLORIDE 0.9% 484 ML IV (01:19)
[2018-08-15] MEDS: ACETAMINOPHEN 650MG/20.3ML CUP NGT (01:47)
[2018-08-15] MEDS: OXYMETAZOLINE 0.05% 15 ML NAS SPRAY NASAL (01:48)
[2018-08-15] MEDS: INSULIN HUMAN REGULAR 100 UNIT in SOD CHLORIDE 0.9% 99 ML IV (04:19)
[2018-08-15 05:31] LABS: ADD MAN DIFF? NO
[2018-08-15 05:32] LABS: BASOPHILS % 0.1 % (0.0-2.0); EOSINOPHILS # 0.2 10^3/ul (0.0-0.5); EOSINOPHILS % 1.4 % (0.0-7.0); HEMATOCRIT 27.7 % (42.0-52.0); HEMOGLOBIN 8.6 g/dl (14.0-18.0); LYMPHOCYTES # 1.3 10^3/ul (0.8-2.9); LYMPHOCYTES % 7.4 % (15.0-51.0); MEAN CORPUSCULAR HEMOGLOBIN 26.6 pg (29.0-33.0); MEAN CORPUSCULAR VOLUME 85.8 fl (82.0-101.0); MEAN PLATELET VOLUME 10.8 fl (7.4-10.4); MONOCYTE # 1.1 10^3/ul (0.3-0.9); MONOCYTES % 6.5 % (0.0-11.0); NEUTROPHIL # 13.7 10^3/ul (1.6-7.5); NEUTROPHILS % 81.6 % (39.0-77.0); NUCLEATED RED BLOOD CELLS% 0.1 /100WBC (0.0-0.0); PLATELET COUNT 182 10^3/UL (140-415); RED BLOOD COUNT 3.23 10^6/ul (4.70-6.10); RED CELL DISTRIBUTION WIDTH 15.4 % (11.5-14.5)
[2018-08-15 05:32] LABS: WHITE BLOOD COUNT 16.8 10^3/ul (4.8-10.8)
[2018-08-15] MEDS: BUMETANIDE 1 MG INJ IV ×2 (05:57→18:00)
[2018-08-15] MEDS: PANTOPRAZOLE 40 MG INJ IV ×2 (05:57→18:00)
[2018-08-15 06:23] LABS: ANION GAP 15 (8-16); BLOOD UREA NITROGEN 55 mg/dl (7-20); CALCIUM 6.9 mg/dl (8.4-10.2); CARBON DIOXIDE 29 mmol/L (21-31); CHLORIDE 93 mmol/L (97-110); CREATININE 9.05 mg/dl (0.61-1.24); GLUCOSE 225 mg/dl (70-220); PHOSPHORUS 8.3 mg/dl (2.5-4.9); POTASSIUM 4.4 mmol/L (3.5-5.1); SODIUM 133 mmol/L (135-144)
[2018-08-15 06:37] LABS: VANCOMYCIN,RANDOM 14.3 ug/ml
[2018-08-15] MEDS: TICAGRELOR 90 MG TABLET NGT (08:55)
[2018-08-15] MEDS: ASPIRIN 81 MG TAB NGT (08:55)
[2018-08-15] MEDS: NORepinephrine 32 MG in DEXTROSE 5% 218 ML IV (09:00)
[2018-08-15] MEDS: SODIUM BICARBONATE (IV ADD) 100 MEQ in DEXTROSE 5% 1,000 ML IV (10:00)
[2018-08-15] MEDS: PROPOFOL 100 ML IV ×2 (11:00→23:00)
[2018-08-15] MEDS: VANCOMYCIN 1.25 GM in SOD CHLORIDE 0.9% 250 ML IVPB (17:44)
[2018-08-15] MEDS: CEFEPIME 1GM/50 ML (PMX) 50 ML IVPB (18:00)
[2018-08-16] MEDS: NORepinephrine 32 MG in DEXTROSE 5% 218 ML IV (03:42)
[2018-08-16] MEDS: PHENYLephrine 160 MG in SOD CHLORIDE 0.9% 484 ML IV (03:45)
[2018-08-16] MEDS: SODIUM BICARBONATE (IV ADD) 100 MEQ in DEXTROSE 5% 1,000 ML IV (04:32)
[2018-08-16 05:17] LABS: Arterial Base Excess 0.3 mmol/L (-3.0-3); Arterial Blood Gas Oxygen Sat 55.3 mmHG (95.0-98.0); Arterial COHb 0.4 % (0.0-3.0); Arterial Fraction of Oxyhgb 54.9 % (93.0-99.0); Arterial MetHb 0.3 % (0.0-1.5); Arterial Total Hemglobin 14.6 g/dl (12.0-18.0); MODE VENT - AC; Site A-Line
[2018-08-16 06:53] LABS: AADO2 Arterial 633.2 mmHg (7.0-24.0); Arterial Base Excess 1.3 mmol/L (-3.0-3); Arterial COHb 0.3 % (0.0-3.0); Arterial Fraction of Oxyhgb 78.5 % (93.0-99.0); Arterial HCO3 25.1 mmol/L (22.0-26.0); Arterial MetHb 0.3 % (0.0-1.5); Arterial Total Hemglobin 9.9 g/dl (12.0-18.0); Arterial pCO2 36.6 mmhg (35-45); Blood Gas PS 30; MODE VENT - PC; Site A-Line
[2018-08-16 07:50] LABS: ADD MAN DIFF? NO
[2018-08-16 07:56] LABS: WHITE BLOOD COUNT 19.3 10^3/ul (4.8-10.8)
[2018-08-16 07:56] LABS: BASOPHILS % 0.2 % (0.0-2.0); EOSINOPHILS # 0.2 10^3/ul (0.0-0.5); HEMATOCRIT 27.6 % (42.0-52.0); HEMOGLOBIN 8.8 g/dl (14.0-18.0); LYMPHOCYTES % 5.1 % (15.0-51.0); MEAN CORPUSCULAR HEMOGLOBIN 26.3 pg (29.0-33.0); MEAN CORPUSCULAR HGB CONC 31.9 g/dl (32.0-37.0); MEAN CORPUSCULAR VOLUME 82.6 fl (82.0-101.0); MEAN PLATELET VOLUME 10.6 fl (7.4-10.4); MONOCYTE # 1.3 10^3/ul (0.3-0.9); MONOCYTES % 6.9 % (0.0-11.0); NEUTROPHIL # 16.1 10^3/ul (1.6-7.5); NEUTROPHILS % 83.5 % (39.0-77.0); NUCLEATED RED BLOOD CELLS% 0.2 /100WBC (0.0-0.0); PLATELET COUNT 201 10^3/UL (140-415); RED BLOOD COUNT 3.34 10^6/ul (4.70-6.10); RED CELL DISTRIBUTION WIDTH 15.1 % (11.5-14.5)
[2018-08-16 08:23] LABS: ANION GAP 20 (8-16); BLOOD UREA NITROGEN 70 mg/dl (7-20); CALCIUM 7.2 mg/dl (8.4-10.2); CARBON DIOXIDE 28 mmol/L (21-31); CHLORIDE 90 mmol/L (97-110); GLUCOSE 207 mg/dl (70-220); MAGNESIUM 2.1 mg/dl (1.7-2.5); PHOSPHORUS 9.9 mg/dl (2.5-4.9); SODIUM 132 mmol/L (135-144)
[2018-08-16 08:38] LABS: CREATININE 9.54 mg/dl (0.61-1.24)
[2018-08-16 08:41] LABS: POTASSIUM 5.8 mmol/L (3.5-5.1)
[2018-08-16] MEDS: PROPOFOL 100 ML IV (11:00)
== END 2018-08-16 17:27 | disposition expired | DRG 246 ==
LOC: E/R 17:06 → ICU 17:41 → SDS 19:36 → ICU 19:50
PROVIDERS: Internal Medicine
PROC: 0271366 Dilation of Coronary Artery, Two Arteries, Bifurcation, with Three Drug-eluting Intraluminal Devices, Percutaneous Approach (ICD-10-PCS; principal; 2018-08-09 17:00)
PROC: 3E033PZ Introduction of Platelet Inhibitor into Peripheral Vein, Percutaneous Approach (ICD-10-PCS; 2018-08-09 17:00)
PROC: 4A023N7 Measurement of Cardiac Sampling and Pressure, Left Heart, Percutaneous Approach (ICD-10-PCS; 2018-08-09 17:00)
PROC: B211YZZ Fluoroscopy of Multiple Coronary Arteries using Other Contrast (ICD-10-PCS; 2018-08-09 17:00)
PROC: 5A12012 Performance of Cardiac Output, Single, Manual (ICD-10-PCS; 2018-08-09 17:39)
PROC: 5A2204Z Restoration of Cardiac Rhythm, Single (ICD-10-PCS; 2018-08-09 17:39)
PROC: 06HN33Z Insertion of Infusion Device into Left Femoral Vein, Percutaneous Approach (ICD-10-PCS; 2018-08-09 17:39)
PROC: 06HM33Z Insertion of Infusion Device into Right Femoral Vein, Percutaneous Approach (ICD-10-PCS; 2018-08-09 17:39)
PROC: B54BZZA Ultrasonography of Right Lower Extremity Veins, Guidance (ICD-10-PCS; 2018-08-09 17:39)
PROC: 5A1D70Z Performance of Urinary Filtration, Intermittent, Less than 6 Hours Per Day (ICD-10-PCS; 2018-08-09 17:39)
PROC: 5A1955Z Respiratory Ventilation, Greater than 96 Consecutive Hours (ICD-10-PCS; 2018-08-09 17:39)
PROC: 5A12012 Performance of Cardiac Output, Single, Manual (ICD-10-PCS; 2018-08-09 17:39)
DX: I21.11 ST elevation (STEMI) myocardial infarction involving right coronary artery (principal); J69.0 Pneumonitis due to inhalation of food and vomit; N17.0 Acute kidney failure with tubular necrosis; J96.01 Acute respiratory failure with hypoxia; A41.9 Sepsis, unspecified organism; R65.21 Severe sepsis with septic shock; G93.1 Anoxic brain damage, not elsewhere classified; E87.2 Acidosis; Z68.42 Body mass index [BMI] 45.0-49.9, adult; I46.8 Cardiac arrest due to other underlying condition; I49.01 Ventricular fibrillation; D64.9 Anemia, unspecified; E87.6 Hypokalemia; E87.5 Hyperkalemia; E83.51 Hypocalcemia; E11.65 Type 2 diabetes mellitus with hyperglycemia; E11.22 Type 2 diabetes mellitus with diabetic chronic kidney disease; E66.9 Obesity, unspecified; I12.9 Hypertensive chronic kidney disease with stage 1 through stage 4 chronic kidney disease, or unspecified chronic kidney disease; N18.9 Chronic kidney disease, unspecified; Z66 Do not resuscitate; Z79.84 Long term (current) use of oral hypoglycemic drugs; Z79.82 Long term (current) use of aspirin
CPT/HCPCS: 36600; 71045; 76775; 76937; 80048; 80053; 80061; 80202; 81001; 81003; 82140; 82150; 82550; 82553; 82570; 82803; 82962; 83036; 83605; 83690; 83735; 84100; 84132; 84300; 84443; 84484; 84560; 85025; 85384; 85610; 85730; 86850; 86900; 86901; 87040; 87070; 87081; 87086; 87340; 89190; 89220; 90935; 92950; 93005; 93306; 93458; 94002; 94003; 94770; 99291-25